=== PATIENT | male | born 1970 | race Two or more races ===

== ENCOUNTER 2018-08-28 12:28 | Observation (INO) | payer OTHER ==
[~2018-08-28] VITALS: Ht 160 cm; Wt 92.1 kg
[~2018-08-28 12:28] MED LIST: AMOX500C7 PO; CLAR500T3 PO; DOX100 PO; NO ROUTINE MEDS; OMEP40CA79 PO; ONDA4TAB PO
[2018-08-28] MEDS ORDERED: MAGNESIUM SUL* 2 GM/50 ML IVPB 50 ML IVPB ONE (12:50)
[2018-08-28] MEDS ORDERED: methylPREDNIS SUCC 125 MG/2ML IVP ONE (12:50)
--- NOTE | 2018-08-28 13:01 | ER Report ---
History and Physical Time Seen By MD: 12:50 Hx. of Stated Complaint: PATIENT REPORTS SOB. WAS RECENTLY HOSPITALIZED FOR 4 DAYS IN [place] FOR ASTHMA EXACERBATION. WAS IN [employer] OFFICE THIS MORNING AND HAD OXYGEN SATUARTIONS OF 85% (VIDAL LOPEZ DO) HPI/ROS CHIEF COMPLAINT: sob, wheezing HISTORY OF PRESENT ILLNESS: Pt sent in by his pcp for sob and wheezing. Pt lives in [place] but works frequently in [place]. Pt was just in [place] for work and started with cough and sob. Pt went to the hospital in [place] and was admitted on 08/22 for 4 days. Pt was told his admission was for asthma. Pt denies hx of asthma but has been a smoker since 17 yrs of age. Pt denies fevers. no uri symptoms. + chest and back pain with the cough. Cough was non productive in [place] but states now occasional green sputum. Pt denies fevers or chills. PT has been on prednisone taper since [place]. Pt also using his nebs and puffer at home. REVIEW OF SYSTEMS: Constitutional: No fever, no chills. Eyes: No discharge. ENT: No sore throat. Cardiovascular: + chest pain, no palpitations. Respiratory: + cough, + shortness of breath. Gastrointestinal: No abdominal pain, no vomiting. Genitourinary: No hematuria. Musculoskeletal: + back pain. Skin: No rashes. Neurological: No headache. (VIDAL LOPEZ DO) Allergies: Coded Allergies: No Known Drug Allergies (Verified , 12/28/12) Home Meds Reported Medications Clarithromycin (BIAXIN (OR EQUIV)) 500 Mg Tab, 500 MG PO BID, #28 12/28/12 Omeprazole (Omeprazole) 40 Mg Capsule.dr, 40 MG PO QDAY, #14 12/28/12 Amoxicillin (AMOXIL (OR EQUIV)) 500 Mg Cap, 1000 MG PO BID, #28 12/28/12 Ondansetron (Zofran Odt) 4 Mg/Udtablet Tab.rapdis, 4 MG PO Q6H, #20 12/28/12 Past Medical/Surgical History Pmhx; copd/asthma (VIDAL LOPEZ DO) Hx Smoking: Yes Smoking Status: Current: Every Day Smoker Exposure to Second Hand Smoke?: No Hx Substance Use Disorder: No Hx Alcohol Use: No (LAURORA,VIDAL V DO) Constitutional Vital Sign - Last 24 Hours 08/28/18 08/28/18 08/28/18 08/28/18 12:35 12:36 12:45 12:48 Temp 98.3 Pulse 110 Resp 20 B/P (MAP) 144/83 (103) 144/83 132/80 (97) Pulse Ox 85 O2 Delivery Room Air O2 Flow Rate 4.0 08/28/18 08/28/18 08/28/18 08/28/18 12:58 13:00 13:15 13:20 Pulse 101 101 Resp 21 23 B/P (MAP) 131/73 (92) 142/80 (100) Pulse Ox 90 89 08/28/18 08/28/18 08/28/18 08/28/18 13:30 13:36 13:36 13:45 Pulse 98 Resp 20 B/P (MAP) 138/80 (99) 122/74 (90) Pulse Ox 88 O2 Delivery Nasal Cannula O2 Flow Rate 4.0 08/28/18 08/28/18 08/28/18 08/28/18 13:50 14:00 14:40 14:40 Pulse 104 118 Resp 15 24 B/P (MAP) 121/70 (87) Pulse Ox 94 87 O2 Delivery Nasal Cannula O2 Flow Rate 5.0 (BECKY CHONG MD) Physical Exam General Appearance: The patient is alert, has no immediate need for airway protection and no signs of toxicity. Eyes: Pupils equal and round no pallor or injection, EOMI ENT: no pharyngeal erythema or exudates, Mucous membranes are moist, TM are nl b/l Respiratory: There are no retractions, + diffuse wheezing and decreased breathsounds throughout Cardiovascular: Regular rate and rhythm. pulses are equal and symmetrical Gastrointestinal: Abdomen is soft and non tender, no masses, bowel sounds normal, no guarding, no rigidity or rebound Neurological: Cranial nerves II-XII grossly intact, no sensory or motor loss Skin: Warm and dry, no rashes. Musculoskeletal: Neck is supple non tender, no vertebral tenderness Extremities are nontender, nonswollen and have full range of motion. DIFFERENTIAL DIAGNOSIS: After history and physical exam differential diagnosis was considered for copd, asthma, pneumonia, influenza, pe (LAURORA,VIDAL V DO) Medical Decision Making Data Points Result Diagram: 08/28/18 1321 08/28/18 1321 Laboratory Hematology Test 08/28/18 12:59 08/28/18 13:21 D-Dimer Quantitative (PE/DVT) < 0.27 ug/ml (0-0.50) Red Blood Count 5.00 M/uL (4.00-5.60) Mean Corpuscular Volume 93.1 fL (80.0-96.0) Mean Corpuscular Hemoglobin 32.3 pg (26.0-33.0) Mean Corpuscular Hemoglobin Concent 34.7 g/dL (32.0-36.0) Red Cell Distribution Width 13.1 % (11.5-14.5) Mean Platelet Volume 7.0 fL (7.2-11.1) Neutrophils (%) (Auto) 80.5 % (39.4-72.5) Lymphocytes (%) (Auto) 12.7 % (17.6-49.6) Monocytes (%) (Auto) 6.2 % (4.1-12.4) Eosinophils (%) (Auto) 0.2 % (0.4-6.7) Basophils (%) (Auto) 0.4 % (0.3-1.4) Nucleated RBC Relative Count (auto) 0.1 /100WBC Neutrophils # (Auto) 11.4 K/uL (2.0-7.4) Lymphocytes # (Auto) 1.8 K/uL (1.3-3.6) Monocytes # (Auto) 0.9 K/uL (0.3-1.0) Eosinophils # (Auto) 0.0 K/uL (0.0-0.5) Basophils # (Auto) 0.1 K/uL (0.0-0.1) Nucleated RBC Absolute Count (auto) 0.02 K/uL Peripheral Blood Smear Yes Y/N Sodium Level 138 mmol/L (137-145) Potassium Level 3.8 mmol/L (3.5-5.0) Chloride Level 106 mmol/L (98-107) Carbon Dioxide Level 26 mmol/L (22-30) Blood Urea Nitrogen 21 mg/dl (9-21) Creatinine 1.00 mg/dl (0.66-1.25) Glomerular Filtration Rate Calc > 60.0 Random Glucose 184 mg/dl (75-110) Calcium Level 8.3 mg/dl (8.4-10.2) Total Bilirubin 0.3 mg/dl (0.2-1.3) Aspartate Amino Transf (AST/SGOT) 50 U/L (0-35) Alanine Aminotransferase (ALT/SGPT) 148 U/L (0-56) Alkaline Phosphatase 117 U/L (0-126) Total Protein 7.0 g/dl (6.3-8.2) Albumin 3.9 g/dl (3.5-5.0) Influenza Virus Type A (PCR) Negative (NEGATIVE) Influenza Virus Type B (PCR) Negative (NEGATIVE) Chemistry Test 08/28/18 12:59 08/28/18 13:21 D-Dimer Quantitative (PE/DVT) < 0.27 ug/ml (0-0.50) White Blood Count 14.1 k/uL (4.5-11.0) Red Blood Count 5.00 M/uL (4.00-5.60) Hemoglobin 16.2 g/dL (14.0-18.0) Hematocrit 46.5 % (42.0-52.0) Mean Corpuscular Volume 93.1 fL (80.0-96.0) Mean Corpuscular Hemoglobin 32.3 pg (26.0-33.0) Mean Corpuscular Hemoglobin Concent 34.7 g/dL (32.0-36.0) Red Cell Distribution Width 13.1 % (11.5-14.5) Platelet Count 256 K/uL (150-450) Mean Platelet Volume 7.0 fL (7.2-11.1) Neutrophils (%) (Auto) 80.5 % (39.4-72.5) Lymphocytes (%) (Auto) 12.7 % (17.6-49.6) Monocytes (%) (Auto) 6.2 % (4.1-12.4) Eosinophils (%) (Auto) 0.2 % (0.4-6.7) Basophils (%) (Auto) 0.4 % (0.3-1.4) Nucleated RBC Relative Count (auto) 0.1 /100WBC Neutrophils # (Auto) 11.4 K/uL (2.0-7.4) Lymphocytes # (Auto) 1.8 K/uL (1.3-3.6) Monocytes # (Auto) 0.9 K/uL (0.3-1.0) Eosinophils # (Auto) 0.0 K/uL (0.0-0.5) Basophils # (Auto) 0.1 K/uL (0.0-0.1) Nucleated RBC Absolute Count (auto) 0.02 K/uL Peripheral Blood Smear Yes Y/N Glomerular Filtration Rate Calc > 60.0 Calcium Level 8.3 mg/dl (8.4-10.2) Total Bilirubin 0.3 mg/dl (0.2-1.3) Aspartate Amino Transf (AST/SGOT) 50 U/L (0-35) Alanine Aminotransferase (ALT/SGPT) 148 U/L (0-56) Alkaline Phosphatase 117 U/L (0-126) Total Protein 7.0 g/dl (6.3-8.2) Albumin 3.9 g/dl (3.5-5.0) Influenza Virus Type A (PCR) Negative (NEGATIVE) Influenza Virus Type B (PCR) Negative (NEGATIVE) Coagulation Test 08/28/18 12:59 D-Dimer Quantitative (PE/DVT) < 0.27 ug/ml (BECKY CHONG MD) EKG/Imaging Imaging no infiltrate, napd (VIDAL LOPEZ DO) ED Course/Re-evaluation ED Course check labs, xray. WIll give steriods, albuterol neb over hour and magnesium 08/28/2018 2:53:41 pm Pts hour long treatment is completed. PTs not as tight but still wheezing throughout. Post treatment peak flow is 500 (predicted 600). Pt still requiring oxygen. PTs main compaint is the treatment has made him cough and that hurts. Will give pt cough medication and monitor. If he does not improve in the next hour then he may need admission. If he settles down then may consider discharge to home with home oxygen. (VIDAL LOPEZ DO) ED Course 08/28/2018 3:38:[address] Lorelei Kaiser regarding patient he is admitted for COPD exacerbation. Decision to Disposition Date: Aug 28, 2018 Decision to Disposition Time: 15:38 Turned Over 08/28/2018 3:21:39 pm accepted care of patient at this time. Patient with long- standing smoking history, and recent admission in [place] for upper respiratory infection. Patient had some improvement was discharged on oral steroids antibiotics and nebulizer treatments which she has been taking at home. Patient with worsening shortness of breath since August 22. Persistent hacking cough. No fevers or chills. Received heart-lung nebulizer treatment in the emergency department. X-ray was unremarkable d-dimer was negative. White count slightly elevated at 14,000. Currently waiting for response to therapy. (BECKY CHONG MD) Depart Departure Latest Vital Signs Vital Signs Date Time Temp Pulse Resp B/P (MAP) Pulse Ox O2 Delivery O2 Flow Rate FiO2 08/28/18 14:40 118 24 08/28/18 14:40 87 Nasal Cannula 5.0 08/28/18 14:00 121/70 (87) 08/28/18 12:36 98.3 (BECKY CHONG MD) Impression: Primary Impression: COPD exacerbation Condition: Improved Disposition: Admitted from ER (to Deanna Kaiser) Referrals: HAILEY TRENT MD (PCP) VIDAL LOPEZ DO Aug 28, 2018 13:01 BECKY CHONG MD Aug 28, 2018 15:23
[2018-08-28 13:11] LABS: PLATELET COUNT, AUTOMATED 256 K/uL (150-450)
[2018-08-28] MEDS ORDERED: ALBUTEROL 2.5 MG/3 ML NEB NEB ONE (13:20)
[2018-08-28] MEDS ORDERED: IPRATROPIUM 0.5MG/2.5ML NEB NEB ONE (13:20)
--- NOTE | 2018-08-28 13:40 | RADIOLOGY IMAGING REPORT ---
FACILITY: [facility] PATIENT NAME: Simon Jackson : 1970 MR: [id number] V: [id number] EXAM DATE: ORDERING PHYSICIAN: VIDAL LOPEZ TECHNOLOGIST: [place] [facility] [place] : 1970 Visit/Account:[id number] Date of Sevice: 08/28/2018 Exam type: CHEST PA LAT History: RESP DISTRESS Comparison: July 15, 2016. Findings: There mild hypoventilatory changes from a limited inspiratory effort. The lungs are free of acute ap pearing infiltrates pleural effusions or overt pulmonary edema. Cardiac silhouette is normal in size . Visualized bones are unremarkable for age. IMPRESSION: 1. No acute cardiopulmonary process is seen Report Dictated By: Abby Villarreal MD at 08/28/2018 1:34 PM Report E-Signed By: Abby Villarreal MD at 08/28/2018 1:36 PM WSN:[email or web address]
[2018-08-28] MEDS ORDERED: NS(*) 0.9% 1000 ML BAG 1,000 ML IV ONE (14:15)
[2018-08-28] MEDS ORDERED: CHLORPH/HYDROCOD SUSP CR 5 ML PO ONE (14:50)
[2018-08-28 16:24] VITALS: BP 134/80
[2018-08-28] MEDS ORDERED: ACETAMINOPHEN 325 MG TAB PO PRN (17:15)
[2018-08-28] MEDS ORDERED: NS(*) 0.9% 1000 ML BAG 1,000 ML IV PRN (17:15)
--- NOTE | 2018-08-28 18:04 | History & Physical ---
History of Present Illness Chief Complaint The patient is a 48 year old male with PMH significant for asthma/COPD and smoking, with recent hospitalization in [place] for exacerbation of asthma, who presents with wheezing and shortness of breath since he returned to [place] yesterday. History of Present Illness The patient states he was diagnosed with asthma about 3 years ago. He has seen Dr. Barksdale, Telephone Information Clerk, in the past and had allergy testing. He was allergic to multiple grasses, plants,etc. He was started on Zyzal, BreoEllipta, and Singulair and had been doing well until he stopped his medications several months ago. He states he felt well at that time and was tired of having to take medications. He notes that he did well for a few months off of his medications and then started having more difficulty with wheezing and shortness of breath. 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 He was in [place] for work this past week and developed wheezing and shortness of breath. He was hospitalized for about 5 days and then was discharged 2 days ago. He traveled home to [place] yesterday and then started having more difficulty with wheezing. He did use his nebulizer several times but notes that the nebulizer treatments initially would make him worse and then better. Today he continued to feel worse and presented to [facility] ER for evaluation. The patient states he continues to smoke but has cut down to one pack every 4 days. He had quit for about a month, but restarted recently due to depressed m ood related to the anniversary of his brother's 4 years ago. The patient is otherwise relatively healthy. He did have arthralgias about 3 years ago and was initially diagnosed with RA. He was treated for 6 months and then his treatment was stopped as it was determined he did not have a rheumatologic disease. He states he currently has no significant joint pain. He has never had a surgery. The patient denies fever or chills. He has not had any GI symptoms. He has had a cough and wheezing. He has traveled for work, but has not had leg pain or swelling. He does not have a history of blood clots. He is exposed to creosote and other toxins due to his work with [employer]. He is outside often so is potentially exposed to his environmental allergens. In the ER, the patient was given IV SoluMedrol, magnesium, and nebulizer treatments. He required 5 L of O2 to keep his sats at about 88%. He was recommended for admission for exacerbation of asthma/COPD. History Problems: (1) Asthma Status: Chronic (2) Smoker Status: Chronic (3) Depressed mood Status: Chronic (4) Elevated liver enzymes Status: Chronic Home Meds Reported Medications Clarithromycin (BIAXIN (OR EQUIV)) 500 Mg Tab, 500 MG PO BID, #28 12/28/12 Omeprazole (Omeprazole) 40 Mg Capsule.dr, 40 MG PO QDAY, #14 12/28/12 Amoxicillin (AMOXIL (OR EQUIV)) 500 Mg Cap, 1000 MG PO BID, #28 12/28/12 Ondansetron (Zofran Odt) 4 Mg/Udtablet Tab.rapdis, 4 MG PO Q6H, #20 12/28/12 Allergies: Coded Allergies: No Known Drug Allergies (Verified , 12/28/12) Patient History: of family member BROTHER OR SISTER, Onset:40s - 50 FH: diabetes mellitus FATHER MOTHER FH: diabetes mellitus FATHER MOTHER FH: hypertension BROTHER OR SISTER, Onset:s - FH: thyroid condition FATHER BROTHER OR SISTER, Onset: - FH: thyroid condition FATHER BROTHER OR SISTER, Onset: - Gout BROTHER OR SISTER, Onset: - Hx Smoking: Yes Smoking Status: Current: Every Day Smoker Exposure to Second Hand Smoke?: No Caffeine Intake: Soda Caffeine/Cups Per Day: 1 soda per week Hx Alcohol Use: Yes Alcohol Used: Beer (States he only drinks a few times a month, but gets "hammered" when he does drink.) Hx Substance Use Disorder: Yes Social Drug Use: Former Social Drugs: Marijuana (The patient denies current use.), Cocaine History of IV Drug Use: No Review of Systems All Systems Reviewed/Normal: Yes, Except as Noted Constitutional: Weight Gain (30 pounds.); No Fever, No Chills ENT: No Sinus Congestion Cardiovascular: No Chest Pain Respiratory: Shortness of Breath, Cough, Wheezing Gastrointestinal: No Nausea, No Vomiting, No Diarrhea Musculoskeletal: No Pain Psychiatric: Depression Exam Vital Signs Vital Signs Date Time Temp Pulse Resp B/P (MAP) Pulse Ox O2 Delivery O2 Flow Rate FiO2 08/28/18 16:24 97.6 93 24 134/80 (98) 90 Nasal Cannula 5.0 General Appearance: Alert, Awake, No Acute Distress, Afebrile Neuro: No Gross deficits Eyes: PERRLA Neck: No Masses, Other (Thyroid normal in size without nodules.) Cardiovascular: Regular Rate and Rhythm Respiratory: Other (Diffuse wheezing on expiration.) GI: Abd Soft and Non-Tender Lymph: Cervical Nodes Benign Extremities: Warm, Perfused, Other (No edema.) Integumentary: Skin Intact without Lesion / Mass Psych: Alert & Oriented X3, Appropriate Mood & Affect Medical Decision Making Data Points Result Diagram: 08/28/18 1321 08/28/18 1321 EKG / Imaging Imaging FACILITY: [facility] PATIENT NAME: Simon Jackson : 1970 MR: [id number] V: [id number] EXAM DATE: ORDERING PHYSICIAN: VIDAL LOPEZ TECHNOLOGIST: [place] [facility] [place] : 1970 Visit/Account:[id number] Date of Sevice: 08/28/2018 Exam type: CHEST PA LAT History: RESP DISTRESS Comparison: July 15, 2016. Findings: There mild hypoventilatory changes from a limited inspiratory effort. The lungs are free of acute appearing infiltrates pleural effusions or overt pulmonary edema. Cardiac silhouette is normal in size. Visualized bones are unremarkable for age. IMPRESSION: 1. No acute cardiopulmonary process is seen Report Dictated By: Abby Villarreal MD at 08/28/2018 1:34 PM Report E-Signed By: Abby Villarreal MD at 08/28/2018 1:36 PM WSN:[email or web address] Pre-Admit Course Medical Record Review: Yes Assessment and Plan Problems: (1) COPD exacerbation Status: Acute Assessment & Plan: Will admit and continue IV SoluMedrol. Will order nebulizer treatments prn. Gently hydrate. Continue O2 to keep saturations 90% or greater. Restart Singulair, antihistamine, and long-acting bronchodilator/steroid combo. He was on BreoEllipta with good result in the past. Will start Advair here as we don't have BreoEllipta on formulary. Counseled regarding need for smoking cessation. (2) Depressed mood Status: Chronic Assessment & Plan: The patient has had difficulty with depressed mood, especially at this time of year, since his brother 4 years ago. He has not been on any treatment for this. (3) Elevated liver enzymes Status: Chronic Assessment & Plan: Review of the EMR shows some LFT elevation in 2017. It appears to be a bit worse now. The patient has gained 30 pounds. He states 3 years ago when he was being evaluated for his arthralgias, he was told his LFTs were high and did have some testing done at that time. Time Spent on Plan of Care: < 30 min Copies to: HAILEY TRENT MD ; Venous Thromboembolism Antithrombotics Is Pt On Any Antithrombotics?: Yes Exam Sepsis Risk: No Definite Risk MIREYA GAITAN MD Aug 28, 2018 18:04
[2018-08-28] MEDS: SALMETEROL/FLUTIC 500/50 1 INH INH SCH (18:22)
[2018-08-28 19:43] VITALS: BP 128/74
[2018-08-28] MEDS ORDERED: [UNRECOGNIZED DRUG - CODE] PO (19:44)
[2018-08-28] MEDS ORDERED: TRAZ50TA34 PO (19:44)
[2018-08-28] MEDS: methylPREDNIS SUCC 125 MG/2ML IVP SCH (19:51)
[2018-08-28 23:47] VITALS: BP 117/68
[2018-08-29] MEDS: methylPREDNIS SUCC 125 MG/2ML IVP SCH ×2 (01:48→06:19)
[2018-08-29] MEDS: ALBUTEROL 2.5 MG/3 ML NEB NEB PRN ×2 (05:49→08:52)
[2018-08-29] MEDS: SALMETEROL/FLUTIC 500/50 1 INH INH SCH (05:49)
[2018-08-29 06:08] LABS: PLATELET COUNT, AUTOMATED 246 K/uL (150-450)
[2018-08-29 06:46] VITALS: BP 131/78
[2018-08-29] MEDS ORDERED: ALBUTEROL 8 GM INHALER INH PRN (08:55)
[2018-08-29] MEDS ORDERED: ENOXAPARIN 40 MG/0.4ML SYR SC SCH (09:00)
[2018-08-29] MEDS ORDERED: MONTELUKAST SODIUM 10 MG TAB PO SCH (09:00)
[2018-08-29] MEDS ORDERED: FEXOFENADINE HCL 60 MG TAB PO SCH (09:00)
--- NOTE | 2018-08-29 10:06 | Hospitalist Progress Note ---
Subjective Progress Notes Subjective He reports doing much better. Less cough and dyspnea. Physical Exam Vital Signs Date Time Temp Pulse Resp B/P (MAP) Pulse Ox O2 Delivery O2 Flow Rate FiO2 08/29/18 08:58 92 18 08/29/18 08:51 89 Nasal Cannula 4.0 08/29/18 06:46 97.5 131/78 (95) Intake and Output 08/29/18 07:00 Intake Total 403 ml Balance 403 ml Intake Oral 120 ml IV Total 283 ml # Voids 3 # Bowel Movements 1 General Appearance: Alert, Awake Cardiovascular: Regular Rate and Rhythm Respiratory: Other (very soft expiratory wheeze on right) GI: Soft and Non-Tender Extremities: Warm, Perfused Psych: Alert & Oriented X3 Result Diagram: 08/29/1854508/29/18545 Assessment and Plan Problems: (1) COPD exacerbation Status: Acute Assessment & Plan: Improved on IV Solu-Medrol, nebulizer treatments prn, O2. We have restarted Singulair, antihistamine, rescue albuterol MDI, and long-acting bronchodilator/steroid combination. He was on Breo Ellipta with good result in the past. We started Advair here as we don't have Breo Ellipta on formulary. We discussed need for complete smoking cessation and he reports understanding. (2) Depressed mood Status: Chronic Assessment & Plan: The patient has had difficulty with depressed mood, especially at this time of year, since his brother 4 years ago. He has not been on any treatment for this. (3) Elevated liver enzymes Status: Chronic Assessment & Plan: Improved today. Review of the EMR shows some LFT elevation in 2017. The patient has gained 30 pounds. He states 3 years ago when he was being evaluated for his arthralgias, he was told his LFTs were high and did have some testing done at that time. He will need to follow up closely with his primary care physician regarding this. Exam Sepsis Risk: No Definite Risk YULI GAITAN MD Aug 29, 2018 10:06
[2018-08-29 11:21] VITALS: BP 135/79
[2018-08-29 13:32] VITALS: Ht 160 cm; Wt 92.1 kg
[2018-08-29] MEDS ORDERED: FLUT1DIS29 INH (14:50)
[2018-08-29] MEDS ORDERED: PRED-1 PO (14:50)
[2018-08-29] MEDS ORDERED: ALB18R INH (14:50)
[2018-08-29] MEDS ORDERED: MONT10TA PO (14:50)
[2018-08-29] MEDS ORDERED: FEXO180T87 PO (14:51)
--- NOTE | 2018-08-29 14:59 | Hospitalist Depart ---
Discharge Summary Reason for Hosp/Final Diag: (1) COPD exacerbation Status: Acute Hospital Course & Plan: He was started on IV Solu-Medrol, nebulizer treatments prn, and supplemental O2. He showed significant improvements. We have restarted Singulair, antihistamine, rescue albuterol MDI, and long-acting bronchodilator/ steroid combination. He was on Breo Ellipta with good result in the past. We started Advair here at [facility] as we don't have Breo Ellipta on formulary. He tolerated this very well and wished to continue. We discussed need for complete smoking cessation and he reports understanding. He was tolerating low levels of activity with the oxygen. He did still have modest hypoxia on room air and will need at least temporary oxygen for the near future. He will follow up closely with Dr. Trent as an outpatient. (2) Depressed mood Status: Chronic Hospital Course & Plan: The patient has had difficulty with depressed mood, especially at this time of year, since his brother 4 years ago. He has not been on any treatment for this. (3) Elevated liver enzymes Status: Chronic Hospital Course & Plan: Improved today. Review of the EMR shows some LFT elevation in 2017. The patient has gained 30 pounds. He states 3 years ago when he was being evaluated for his arthralgias, he was told his LFTs were high and did have some testing done at that time. He will need to follow up closely with his primary care physician regarding this. Departure Weight (Pounds): 203 Result Diagram: 08/29/18 0546 08/29/18 0546 Item Value Date Time White Blood Count 14.1 k/uL H 08/28/18 1321 Hemoglobin 16.2 g/dL 08/28/18 1321 Hematocrit 46.5 % 08/28/18 1321 Platelet Count 256 K/uL 08/28/18 1321 Sodium Level 138 mmol/L 08/28/18 1321 Potassium Level 3.8 mmol/L 08/28/18 1321 Chloride Level 106 mmol/L 08/28/18 1321 Carbon Dioxide Level 26 mmol/L 08/28/18 1321 Blood Urea Nitrogen 21 mg/dl 08/28/18 1321 Creatinine 1.00 mg/dl 08/28/18 1321 Glomerular Filtration Rate Calc > 60.0 08/28/18 1321 Random Glucose 184 mg/dl H 08/28/18 1321 Calcium Level 8.3 mg/dl L 08/28/18 1321 Total Bilirubin 0.3 mg/dl 08/28/18 1321 Aspartate Amino Transf (AST/SGOT) 50 U/L H 08/28/18 1321 Alanine Aminotransferase (ALT/SGPT) 148 U/L H 08/28/18 1321 Alkaline Phosphatase 117 U/L 08/28/18 1321 Total Protein 7.0 g/dl 08/28/18 1321 D-Dimer Quantitative (PE/DVT) < 0.27 ug/ml 08/28/18 1259 Influenza Virus Type A (PCR) Negative 08/28/18 1321 Influenza Virus Type B (PCR) Negative 08/28/18 1321 Imaging PATIENT NAME: Simon Jackson : 1970 MR: [id number] V: [id number] EXAM DATE: ORDERING PHYSICIAN: VIDAL LOPEZ TECHNOLOGIST: Location: [facility] [place] Patient: Simon Jackson : 1970 Visit/Account:[id number] Date of Sevice: 08/28/2018 Exam type: CHEST PA LAT History: RESP DISTRESS Comparison: July 15, 2016. Findings: There mild hypoventilatory changes from a limited inspiratory effort. The lungs are free of acute appearing infiltrates pleural effusions or overt pulmonary edema. Cardiac silhouette is normal in size. Visualized bones are unremarkable for age. IMPRESSION: 1. No acute cardiopulmonary process is seen Report Dictated By: Abby Villarreal MD at 08/28/2018 1:34 PM Report E-Signed By: Abby Villarreal MD at 08/28/2018 1:36 PM WSN:[email or web address] Condition: Improved Discharge: Home Time Spent: > 30 min Discharge Instructions Home Meds Active Scripts Fexofenadine Hcl (FEXOFENADINE HCL) 180 Mg Tablet, 180 MG PO QDAY, #30 TAB 1 Refill Prov:YULI GAITAN MD 08/29/18 Prednisone 10 Mg Tab (PREDNISONE 10 MG TAB) 10 Mg Tablet, 40 MG PO QDAY, #14 TAB 0 Refills Four tabs PO daily for two days, then two tabs daily for two days, then one tab daily for two days, then off. Prov:YULI GAITAN MD 08/29/18 Montelukast Sodium (SINGULAIR) 10 Mg Tablet, 10 MG PO QDAY, #30 TAB 1 Refill Prov:YULI GAITAN MD 08/29/18 Fluticasone/Salmeterol (ADVAIR 500-50 DISKUS) 1 Each Disk.w.dev, 0 EACH INH BIDR, #1 DISK 1 Refill Prov:YULI GAITAN MD 08/29/18 Albuterol Sulfate (VENTOLIN HFA) 18 Gm Inh, 0 GM INH Q2HR PRN for SHORTNESS OF BREATH, #1 INH 1 Refill Prov:YULI GAITAN MD 08/29/18 Reported Medications Guaifenesin (MUCUS RELIEF) 600 Mg Tablet.er, 600 MG PO BID PRN for CONGESTION 08/28/18 Trazodone Hcl (TRAZODONE HCL) 50 Mg Tablet, 50 MG PO HS 08/28/18 Discontinued Reported Medications Clarithromycin (BIAXIN (OR EQUIV)) 500 Mg Tab, 500 MG PO BID, #28 12/28/12 Omeprazole (Omeprazole) 40 Mg Capsule.dr, 40 MG PO QDAY, #14 12/28/12 Amoxicillin (AMOXIL (OR EQUIV)) 500 Mg Cap, 1000 MG PO BID, #28 12/28/12 Ondansetron (Zofran Odt) 4 Mg/Udtablet Tab.rapdis, 4 MG PO Q6H, #20 12/28/12 Follow up Referrals: Family [facility] @ [facility] with HAILEY TRENT MD Diet: Regular Activity: As Tolerated (with oxygen), No Exertion Special Instructions: Follow up with Dr. Trent as planned on Friday09/01/18. Return to ER if any problems. Home oxygen at 3L via nasal cannula continuously. Copies to: HAILEY TRENT MD ; Venous Thromboembolism Antithrombotics Is Pt On Any Antithrombotics?: Yes YULI GAITAN MD Aug 29, 2018 14:59
[2018-08-29] MEDS ORDERED: methylPREDNIS SUCC 125 MG/2ML IVP SCH (19:00)
[2018-08-30] MEDS ORDERED: INFLUENZA VIRUS VAC 0.5ML SYR IM ONLY ONE (17:15)
== END 2018-08-29 16:45 | disposition home or self-care (01) ==
LOC: ER 12:45 → INTOOBSV 15:52 → UNDOADMOB 15:52 → MED 15:52 → UNDODISOB 08-29 16:45
PROVIDERS: ADMIT Internal Medicine; ATTEND Internal Medicine
DX: J44.1 Chronic obstructive pulmonary disease with (acute) exacerbation (principal); F17.210 Nicotine dependence, cigarettes, uncomplicated; F32.9 Major depressive disorder, single episode, unspecified; R79.89 Other specified abnormal findings of blood chemistry
CPT/HCPCS: 36415; 71046; 84443; 85025; 85379; 87502; 94640; 96365; 96375; 96376; 99285; G0378; J2930; J3475; J3535; J7030; J7613; J7644; 82040; 82247; 82310; 82374; 82435; 82565; 82947; 84075; 84132; 84155; 84295; 84450; 84460; 84520; 96361

== ENCOUNTER → 2018-12-04 | Outpatient (CLI) | payer OTHER ==
[2018-08-29 13:32] VITALS: BMI 36.0
[~2018-12-04] MED LIST changes: +ALB18R INH; +FEXO180T87 PO; +FLUT1DIS29 INH; +MONT10TA PO; +PRED-1 PO; +TRAZ50TA34 PO; +[UNRECOGNIZED DRUG - CODE] PO
== END ==
LOC: RESP 00:35
PROVIDERS: ATTEND Internal Medicine
DX: J45.40 Moderate persistent asthma, uncomplicated (principal)
CPT/HCPCS: 94060; 94726; 94729